=== PATIENT | male | born 1980 | race Caucasian/White ===

== ENCOUNTER 2017-11-03 19:16 | Emergency (ER) | payer BC, OTHER ==
[2017-11-03 19:31] VITALS: BP 150/100
[2017-11-03] MEDS ORDERED: Sodium Chloride 0.9% 10 ML Syringe FLUSH PRN (19:37)
[2017-11-03] MEDS ORDERED: Aspirin 81 MG Tab.Chew PO ONE (19:44)
--- NOTE | 2017-11-03 19:44 | EDM.PDOC ---
ED HPI GENERAL MEDICAL PROBLEM - General Chief Complaint: Chest Pain Stated Complaint: CHEST DISCOMFORT Time Seen by Provider: 11/03/17 19:31 Source of Information: Reports: Patient History Limitations: Reports: No Limitations - History of Present Illness INITIAL COMMENTS - FREE TEXT/NARRATIVE: The patient presents with fluttering in his chest. This has been going on since yesterday. It is on and off until tonight it was constant for the past 2 hours. It did stop by the time he came in. He has no chest pain or shortness of breath. He has no fever, chills, cough, abdominal pain, nausea or vomiting. He has no history of heart problems. He has no hypertension, diabetes or high cholesterol. He does not smoke. Onset: Gradual Duration: Day(s): (Yesterday) Location: Reports: Chest Quality: Reports: Other (fluttering) Severity: Moderate Improves with: Reports: None Worsens with: Reports: None Associated Symptoms: Reports: No Other Symptoms - Related Data Allergies Allergy/AdvReac Type Severity Reaction Status Date / Time No Known Allergies Allergy Verified 01/13/16 19:22 Home Meds: Home Meds Cholestyramine/Sucrose [Cholestyramine] 4 gm PO DAILY 01/13/16 [History] Hydrocodone/Acetaminophen [Hydrocodon-Acetaminophen 5-325] 5 - 325 mg PO ASDIRECTED 11/03/17 [History] Past Medical History - Past Health History Medical/Surgical History: Denies Medical/Surgical History Gastrointestinal History: Reports: Other (See Below) - Past Surgical History GI Surgical History: Reports: Cholecystectomy, Colonoscopy Social & Family History - Family History Family Medical History: Noncontributory - Tobacco Use Smoking Status *Q: Never Smoker Years of Tobacco use: 15 Packs/Tins Daily: 0.2 - Caffeine Use Caffeine Use: Reports: Soda - Recreational Drug Use Recreational Drug Use: No - Living Situation & Occupation Living situation: Reports: Occupation: Employed ED ROS GENERAL - Review of Systems Review Of Systems: See Below Constitutional: Reports: No Symptoms HEENT: Reports: No Symptoms Respiratory: Reports: No Symptoms Cardiovascular: Reports: Other (fluttering in his chest) Endocrine: Reports: No Symptoms GI/Abdominal: Reports: No Symptoms : Reports: No Symptoms Musculoskeletal: Reports: No Symptoms ED EXAM, GENERAL - Physical Exam Exam: See Below Exam Limited By: No Limitations General Appearance: Alert, No Apparent Distress Ears: Normal External Exam Nose: Normal Inspection Head: Atraumatic, Normocephalic Neck: Normal Inspection Respiratory/Chest: No Respiratory Distress, Lungs Clear, Normal Breath Sounds Cardiovascular: Regular Rate, Rhythm, No Edema, No Murmur GI/Abdominal: Soft, Non-Tender, No Organomegaly, No Mass Extremities: Normal Inspection EKG INTERPRETATION EKG Date: 11/03/17 Time: 19:26 Rhythm: NSR Rate (Beats/Min): 85 [place]: Normal P-Wave: Present QRS: Normal ST-T: Elevated (slight elevation in the inferior leads) QT: Normal EKG Interpretation Comments: Flipped T waves in the lateral leads Course - Vital Signs Last Recorded V/S: Last Vital Signs Temp 97.0 F 11/03/17 19:30 Pulse 87 11/03/17 19:30 Resp 20 11/03/17 19:30 BP 150/100 H 11/03/17 19:30 Pulse Ox 96 11/03/17 19:30 - Orders/Labs/Meds Orders: Active Orders 24 hr Category Date Time Status Cardiac Monitoring [RC] . DIRECTED Care 11/03/17 19:37 Active EKG Documentation Completion [RC] STAT Care 11/03/17 19:33 Active Peripheral IV Care [RC] . DIRECTED Care 11/03/17 19:38 Active Chest 1V Frontal [CR] Stat Exams 11/03/17 19:38 Taken Sodium Chloride 0.9% [Saline Flush] Med 11/03/17 19:37 Active 10 ml FLUSH ASDIRECTED PRN Peripheral IV Insertion Adult [OM.PC] Stat Oth 11/03/17 19:37 Ordered EKG 12 Lead [EK] Stat Ther 11/03/17 22:26 Ordered Medication Orders Sodium Chloride (Saline Flush) 10 ml FLUSH ASDIRECTED PRN PRN Reason: Keep Vein Open Last Admin: 11/03/17 19:57 Dose: 10 ml Labs: Laboratory Tests 11/03/17 11/03/17 11/03/17 Range/Units 19:45 19:45 19:45 WBC 7.52 (4.23-9.07) K/mm3 RBC 4.89 (4.63-6.08) M/mm3 Hgb 14.5 (13.7-17.5) gm/L Hct 40.7 (40.1-51.0) % MCV 83.2 (79.0-92.2) fl MCH 29.7 (25.7-32.2) pg MCHC 35.6 H (32.2-35.5) g/dl RDW Std Deviation 38.8 (35.1-43.9) fL Plt Count 177 (163-337) K/mm3 MPV 10.7 (9.4-12.3) fl Neut % (Auto) 61.0 (34.0-67.9) % Lymph % (Auto) 28.5 (21.8-53.1) % [place] % (Auto) 8.2 (5.3-12.2) % Eos % (Auto) 1.6 (0.8-7.0) Baso % (Auto) 0.3 (0.1-1.2) % Neut # (Auto) 4.59 (1.78-5.38) K/mm3 Lymph # (Auto) 2.14 (1.32-3.57) K/mm3 [place] # (Auto) 0.62 (0.30-0.82) K/mm3 Eos # (Auto) 0.12 (0.04-0.54) K/mm3 Baso # (Auto) 0.02 (0.01-0.08) K/mm3 D-Dimer, Quantitative 0.21 (0.19-0.50) mg/L Sodium 141 (136-145) mEq/L Potassium 3.6 (3.5-5.1) mEq/L Chloride 105 (98-107) mEq/L Carbon Dioxide 25 (21-32) mEq/L Anion Gap 14.6 (5-15) BUN 19 H (7-18) mg/dL Creatinine 1.2 (0.7-1.3) mg/dL Est Cr Clr Drug Dosing 88.02 mL/min Estimated GFR (MDRD) > 60 (>60) mL/min BUN/Creatinine Ratio 15.8 (14-18) Glucose 189 H (74-106) mg/dL Calcium 9.0 (8.5-10.1) mg/dL Total Bilirubin 0.3 (0.2-1.0) mg/dL AST 87 H (15-37) U/L ALT 162 H (16-63) U/L Alkaline Phosphatase 142 H (46-116) U/L Troponin I 0.019 (0.00-0.056) ng/mL Total Protein 7.2 (6.4-8.2) g/dl Albumin 3.7 (3.4-5.0) g/dl Globulin 3.5 gm/dL Albumin/Globulin Ratio 1.1 (1-2) 11/03/17 Range/Units 22:45 WBC (4.23-9.07) K/mm3 RBC (4.63-6.08) M/mm3 Hgb (13.7-17.5) gm/L Hct (40.1-51.0) % MCV (79.0-92.2) fl MCH (25.7-32.2) pg MCHC (32.2-35.5) g/dl RDW Std Deviation (35.1-43.9) fL Plt Count (163-337) K/mm3 MPV (9.4-12.3) fl Neut % (Auto) (34.0-67.9) % Lymph % (Auto) (21.8-53.1) % [place] % (Auto) (5.3-12.2) % Eos % (Auto) (0.8-7.0) Baso % (Auto) (0.1-1.2) % Neut # (Auto) (1.78-5.38) K/mm3 Lymph # (Auto) (1.32-3.57) K/mm3 [place] # (Auto) (0.30-0.82) K/mm3 Eos # (Auto) (0.04-0.54) K/mm3 Baso # (Auto) (0.01-0.08) K/mm3 D-Dimer, Quantitative (0.19-0.50) mg/L Sodium (136-145) mEq/L Potassium (3.5-5.1) mEq/L Chloride (98-107) mEq/L Carbon Dioxide (21-32) mEq/L Anion Gap (5-15) BUN (7-18) mg/dL Creatinine (0.7-1.3) mg/dL Est Cr Clr Drug Dosing mL/min Estimated GFR (MDRD) (>60) mL/min BUN/Creatinine Ratio (14-18) Glucose (74-106) mg/dL Calcium (8.5-10.1) mg/dL Total Bilirubin (0.2-1.0) mg/dL AST (15-37) U/L ALT (16-63) U/L Alkaline Phosphatase (46-116) U/L Troponin I 0.017 (0.00-0.056) ng/mL Total Protein (6.4-8.2) g/dl Albumin (3.4-5.0) g/dl Globulin gm/dL Albumin/Globulin Ratio (1-2) Meds: Medications Generic Name Dose Route Start Last Admin Trade Name Freq PRN Reason Stop Dose Admin Sodium Chloride 10 ml 11/03/17 19:37 11/03/17 19:57 Saline Flush FLUSH 10 ml ASDIRECTED PRN Administration Keep Vein Open Discontinued Medications Generic Name Dose Route Start Last Admin Trade Name Freq PRN Reason Stop Dose Admin Aspirin 324 mg 11/03/17 19:44 11/03/17 19:56 Aspirin PO 11/03/17 19:45 324 mg ONETIME ONE Administration - Re-Assessments/Exams Free Text/Narrative Re-Assessment/Exam: 11/03/17 19:44 I ordered an IV saline lock, aspirin, EKG, CXR and labs. His EKG is not normal. He has some flipped T waves in the lateral leads and slight elevation in the inferior leads. 11/03/17 23:29 His CXR looks good. His CBC looks good. His glucose was elevated at 187. His AST was elevated at 87. His ALT was elevated at 162 along with his alk phos. His troponin was normal. He had a couple PACS while here in the ER. I ordered a repeat EKG and he still had the flipped T waves in the lateral leads. I feel that is normal for him. I will have him wear a holter monitor for a couple of days and follow up with Dr Solomon. Departure - Departure Time of Disposition: 11:35 Disposition: Home, Self-Care 01 Condition: Good Clinical Impression: Palpitations, Elevated liver enzymes, Elevated blood sugar Referrals: PCP,None [Primary Care Provider] - Venkatesh Solomon Jr, MD [Ordering Only Provider] - 1 Week Forms: ED Department Discharge Additional Instructions: Wear the holter monitor for 2 days. Follow up with Dr Solomon in 1 week. Have your liver enzymes rechecked and your blood sugar. Please return if you are worse. - My Orders Last 24 Hours: My Active Orders 11/03/17 19:33 EKG Documentation Completion [RC] STAT 11/03/17 19:37 Cardiac Monitoring [RC] . DIRECTED Sodium Chloride 0.9% [Saline Flush] 10 ml FLUSH ASDIRECTED PRN Peripheral IV Insertion Adult [OM.PC] Stat 11/03/17 19:38 Peripheral IV Care [RC] . DIRECTED Chest 1V Frontal [CR] Stat 11/03/17 22:26 EKG 12 Lead [EK] Stat - Assessment/Plan Last 24 Hours: My Active Orders 11/03/17 19:33 EKG Documentation Completion [RC] STAT 11/03/17 19:37 Cardiac Monitoring [RC] . DIRECTED Sodium Chloride 0.9% [Saline Flush] 10 ml FLUSH ASDIRECTED PRN Peripheral IV Insertion Adult [OM.PC] Stat 11/03/17 19:38 Peripheral IV Care [RC] . DIRECTED Chest 1V Frontal [CR] Stat 11/03/17 22:26 EKG 12 Lead [EK] Stat
--- NOTE | 2017-11-04 07:10 | CR ---
Chest: Portable view of the chest was obtained. Comparison: Prior chest x-ray not available. Heart size and mediastinum are within normal limits for portable technique. Lungs are clear. Old healed left clavicle fracture is noted as well as several old healed rib fractures on the left side. Impression: 1. Nothing acute is seen on portable chest x-ray. Old left clavicle fracture is and old left-sided rib fractures. Diagnostic code #2
== END 2017-11-03 23:51 | disposition home or self-care (01) ==
LOC: JD.ED 19:16 → SUPCPDRO 19:16 → JD.ED 23:51
DX: R00.2 Palpitations (principal); R74.8 Abnormal levels of other serum enzymes; R73.9 Hyperglycemia, unspecified
CPT/HCPCS: 36415; 71045; 80053; 84484; 85025; 85379; 93005; 99285; A9270; J7050; 93010

== ENCOUNTER 2018-02-11 19:25 | Emergency (ER) | payer BC ==
[2018-02-11 19:35] VITALS: BP 154/101
[2018-02-11] MEDS ORDERED: Acetaminophen/HYDROcodone 325-5 MG Tab PO ONE (20:04)
--- NOTE | 2018-02-11 20:04 | EDM.PDOC ---
ED HPI GENERAL MEDICAL PROBLEM - General Chief Complaint: Skin Complaint Stated Complaint: SWOLLEN LEG Time Seen by Provider: 02/11/18 19:43 Source of Information: Reports: Patient, RN Notes Reviewed - History of Present Illness INITIAL COMMENTS - FREE TEXT/NARRATIVE: 37 year old male with swollen painful R lower leg. He started to have mild rash R lower leg about 1 week ago which has worsened over the last 2 days. Yesterday evening the leg started to swell. He did work today, this evening the leg is much more red, swollen and painful. No injury to the leg. He does work on work over rigs, wears a fire resistant coverall. Does get extremely hot and sweaty inside the coverall with the currently warm weather we are having. Right Lower Leg Pain Score (Numeric/FACES): 7 - Related Data Allergies Allergy/AdvReac Type Severity Reaction Status Date / Time No Known Allergies Allergy Verified 01/13/16 19:22 Home Meds: Home Meds Cholestyramine/Sucrose [Cholestyramine] 4 gm PO DAILY 01/13/16 [History] Hydrocodone/Acetaminophen [Hydrocodon-Acetaminophen 5-325] 5 - 325 mg PO ASDIRECTED 11/03/17 [History] Acetaminophen/HYDROcodone [[place] 325-5 MG] 1 tab PO Q6H PRN #10 tablet 02/11/18 [Rx] Cephalexin [Keflex] 500 mg PO QID #40 capsule 02/11/18 [Rx] Doxycycline [Vibramycin] 100 mg PO BID #20 tab 02/11/18 [Rx] Past Medical History - Past Health History Medical/Surgical History: Denies Medical/Surgical History Gastrointestinal History: Reports: Other (See Below) - Past Surgical History GI Surgical History: Reports: Cholecystectomy, Colonoscopy Social & Family History - Family History Family Medical History: Noncontributory - Tobacco Use Smoking Status *Q: Never Smoker - Caffeine Use Caffeine Use: Reports: None - Recreational Drug Use Recreational Drug Use: No - Living Situation & Occupation Living situation: Reports: Occupation: Employed ED ROS GENERAL - Review of Systems Review Of Systems: See Below Constitutional: Denies: Fever, Chills, Diaphoresis HEENT: Reports: No Symptoms Respiratory: Denies: Shortness of Breath, Pleuritic Chest Pain Cardiovascular: Denies: Chest Pain GI/Abdominal: Denies: Abdominal Pain, Nausea, Vomiting Musculoskeletal: Reports: Leg Pain (R lower leg) Skin: Reports: Rash (R lower leg), Erythema (R lower leg) Neurological: Denies: Numbness, Tingling ED EXAM, SKIN/RASH Exam: See Below General Appearance: Alert, Mild Distress Throat/Mouth: Normal Inspection Head: Atraumatic Neck: Supple Respiratory/Chest: No Respiratory Distress, Lungs Clear, Normal Breath Sounds Cardiovascular: Regular Rate, Rhythm Extremities: Pedal Edema, Leg Pain, Increased Warmth, Redness (R lower leg, scattered erythema and rash diffusely R lower leg), Other (quite severe diffuse tenderness R lower leg anteriorly and posteriorly) Neurological: No Motor/Sensory Deficits Skin: Warm, Dry, Erythema (R lower leg), Increased Warmth, Other Course - Vital Signs Last Recorded V/S: Last Vital Signs Temp 97.7 F 02/11/18 19:33 Pulse 76 02/11/18 19:33 Resp 16 02/11/18 19:33 BP 154/101 H 02/11/18 19:33 Pulse Ox 96 02/11/18 19:33 - Orders/Labs/Meds Orders: Active Orders 24 hr Category Date Time Status Peripheral IV Care [RC] . DIRECTED Care 02/11/18 20:49 Active Sodium Chloride 0.9% [Saline Flush] Med 02/11/18 20:49 Active 10 ml FLUSH ASDIRECTED PRN Peripheral IV Insertion Adult [OM.PC] Stat Oth 02/11/18 20:48 Ordered Medication Orders Sodium Chloride (Saline Flush) 10 ml FLUSH ASDIRECTED PRN PRN Reason: Keep Vein Open Last Admin: 02/11/18 20:56 Dose: 10 ml Labs: Laboratory Tests 02/11/18 Range/Units 20:00 D-Dimer, Quantitative 0.23 (0.19-0.50) mg/L Meds: Medications Generic Name Dose Route Start Last Admin Trade Name Freq PRN Reason Stop Dose Admin Sodium Chloride 10 ml 02/11/18 20:49 02/11/18 20:56 Saline Flush FLUSH 10 ml ASDIRECTED PRN Administration Keep Vein Open Discontinued Medications Generic Name Dose Route Start Last Admin Trade Name Freq PRN Reason Stop Dose Admin Hydrocodone Bitart/Acetaminophen 1 tab 02/11/18 20:04 02/11/18 20:09 [place] 325-5 Mg PO 02/11/18 20:05 1 tab ONETIME ONE Administration Cefazolin Sodium/Dextrose 2 gm 50 mls @ 100 mls/hr 02/11/18 20:49 02/11/18 20 :56 / Premix IV 02/11/18 21:18 100 mls/hr ONETIME ONE Administration - Re-Assessments/Exams Free Text/Narrative Re-Assessment/Exam: 02/11/18 21:34 D Dimer was neg. Have given ancef 2 grams IV, discharge instr. as documented. Departure - Departure Time of Disposition: 21:30 Disposition: Home, Self-Care 01 Condition: Fair Clinical Impression: Cellulitis Qualifiers: Site of cellulitis: extremity Site of cellulitis of extremity: lower extremity Laterality: right Qualified Code(s): L03.115 - Cellulitis of right lower limb - Discharge Information Prescriptions: Acetaminophen/HYDROcodone [[place] 325-5 MG] 1 tab PO Q6H PRN #10 tablet PRN Reason: Pain Cephalexin [Keflex] 500 mg PO QID #40 capsule Doxycycline [Vibramycin] 100 mg PO BID #20 tab Instructions: Cellulitis, Adult, [id number] Referrals: Venkatesh Solomon Jr, MD [Primary Care Provider] - Forms: ED Department Discharge Additional Instructions: rest and elevate leg as much as possible to help get the swelling down, doxycycline 200 mg twice daily for 4 days and than 100 mg twice daily for the next 6 days. Cephalexin 500 mg 4 times daily for 10 days or until gone. Tylenol or ibuprofen for mild to moderate discomfort or hydrocodone if needed for more severe pain. Do not drive or work when taking hydrocodone. Have rechecked if symptoms become much worse over the next 12 to 24 hours rather than improving over the next 2 to 3 days as expected. - My Orders Last 24 Hours: My Active Orders 02/11/18 20:48 Peripheral IV Insertion Adult [OM.PC] Stat 02/11/18 20:49 Peripheral IV Care [RC] . DIRECTED Sodium Chloride 0.9% [Saline Flush] 10 ml FLUSH ASDIRECTED PRN - Assessment/Plan Last 24 Hours: My Active Orders 02/11/18 20:48 Peripheral IV Insertion Adult [OM.PC] Stat 02/11/18 20:49 Peripheral IV Care [RC] . DIRECTED Sodium Chloride 0.9% [Saline Flush] 10 ml FLUSH ASDIRECTED PRN
[2018-02-11] MEDS ORDERED: ceFAZolin 2 GM in Premix Bag 1 BAG IV ONE (20:49)
[2018-02-11] MEDS ORDERED: Sodium Chloride 0.9% 10 ML Syringe FLUSH PRN (20:49)
== END 2018-02-11 21:35 | disposition home or self-care (01) ==
LOC: JD.ED 19:25
DX: L03.115 Cellulitis of right lower limb (principal); Z79.899 Other long term (current) drug therapy
CPT/HCPCS: 36415; 85379; 96365; 99283; A9270; J0690; J7050

== ENCOUNTER 2018-02-15 12:40 | Emergency (ER) | payer BC ==
[2018-02-15] MEDS ORDERED: Acetaminophen/HYDROcodone 325-5 MG Tab PO ONE (13:07)
--- NOTE | 2018-02-15 13:12 | EDM.PDOC ---
ED HPI GENERAL MEDICAL PROBLEM - General Chief Complaint: Lower Extremity Injury/Pain Stated Complaint: R LEG SWOLLEN Time Seen by Provider: 02/15/18 12:51 Source of Information: Reports: Patient, RN Notes Reviewed (37-year-old male comes in with right leg pain and swelling. Presented to the ED 4 days ago with similar symptoms. At that time d-dimer was negative, diagnosis was made of cellulitis. He was started on doxycycline and cephalexin. He states the leg was improving with the swelling going down less erythema but then after going back to work this morning about 7 hours ago the leg is now become much more swollen and painful.) - History of Present Illness INITIAL COMMENTS - FREE TEXT/NARRATIVE: 37-year-old male comes in with right lower leg pain and swelling. He was first seen in our ED 4 days ago. See that record for details. D-dimer was negative. He was diagnosed with cellulitis, started on cephalexin and doxycycline. The swelling did improve over the following 3 days and erythema and rash was also improving. After going back to work this morning about 7 hours ago the leg is now much more swollen red and painful. He has had no recent fever or chills but states he did have fever about 5 days ago, one day before he presented to the ED. He is not aware of any particular injury. No chest pain or difficulty breathing. Right Lower Leg Pain Score (Numeric/FACES): 6 - Related Data Allergies Allergy/AdvReac Type Severity Reaction Status Date / Time No Known Allergies Allergy Verified 02/15/18 12:57 Home Meds: Home Meds Cholestyramine/Sucrose [Cholestyramine] 4 gm PO DAILY 01/13/16 [History] Hydrocodone/Acetaminophen [Hydrocodon-Acetaminophen 5-325] 5 - 325 mg PO ASDIRECTED 11/03/17 [History] Cephalexin [Keflex] 500 mg PO QID #40 capsule 02/11/18 [Rx] Doxycycline [Vibramycin] 100 mg PO BID #20 tab 02/11/18 [Rx] Acetaminophen/HYDROcodone [[place] 325-5 MG] 1 tab PO Q6H PRN #14 tablet 02/15/18 [Rx] Past Medical History - Past Health History Medical/Surgical History: Denies Medical/Surgical History Gastrointestinal History: Reports: Other (See Below) - Past Surgical History GI Surgical History: Reports: Cholecystectomy, Colonoscopy Social & Family History - Family History Family Medical History: Noncontributory - Caffeine Use Caffeine Use: Reports: None - Living Situation & Occupation Living situation: Reports: Occupation: Employed Review of Systems - Review of Systems Review Of Systems: See Below Constitutional: Reports: Fever. Denies: Chills Eyes: Reports: No Symptoms (5 days ago) Mouth/Throat: Reports: No Symptoms Respiratory: Denies: Shortness of Breath, Pleuritic Chest Pain, Cough Cardiovascular: Denies: Chest Pain, Palpitations GI/Abdominal: Denies: Abdominal Pain, Nausea, Vomiting Musculoskeletal: Reports: Leg Pain (Right lower leg). Denies: Joint Pain Skin: Reports: Rash (Right lower leg), Erythema Neurological: Denies: Numbness ( right lower leg), Tingling ED EXAM, GENERAL - Physical Exam Exam: See Below General Appearance: Alert, Mild Distress Eye Exam: Bilateral Eye: PERRL Throat/Mouth: Normal Inspection Head: Atraumatic Neck: Supple Respiratory/Chest: No Respiratory Distress, Lungs Clear, Normal Breath Sounds Cardiovascular: Regular Rate, Rhythm Extremities: Pedal Edema (Moderate diffuse swelling right lower leg), Leg Pain ( Quite markedly tenderness of the right lower leg especially posteriorly), Increased Warmth (Mild right lower leg), Redness (Mild right lower leg) Neurological: Alert, Oriented, No Motor/Sensory Deficits Skin Exam: Warm, Dry Course - Vital Signs Last Recorded V/S: Last Vital Signs Temp 97.1 F 02/15/18 13:01 Pulse 74 02/15/18 13:01 Resp 18 02/15/18 13:01 BP 164/96 H 02/15/18 13:01 Pulse Ox 97 02/15/18 13:01 - Orders/Labs/Meds Labs: Laboratory Tests 02/15/18 02/15/18 Range/Units 13:24 13:24 WBC 6.93 (4.23-9.07) K/mm3 RBC 4.67 (4.63-6.08) M/mm3 Hgb 14.1 (13.7-17.5) gm/L Hct 39.5 L (40.1-51.0) % MCV 84.6 (79.0-92.2) fl MCH 30.2 (25.7-32.2) pg MCHC 35.7 H (32.2-35.5) g/dl RDW Std Deviation 39.6 (35.1-43.9) fL Plt Count 174 (163-337) K/mm3 MPV 10.7 (9.4-12.3) fl Neutrophils % (Manual) 66 H (40-60) % Band Neutrophils % 0 (0-10) % Lymphocytes % (Manual) 27 (20-40) % Atypical Lymphs % 0 % Monocytes % (Manual) 6 (2-10) % Eosinophils % (Manual) 1 (0.8-7.0) % Basophils % (Manual) 0 L (0.2-1.2) Platelet Estimate Adequate RBC Morph Comment Normal C-Reactive Protein 0.4 (<1.0) mg/dL Meds: Medications Discontinued Medications Generic Name Dose Route Start Last Admin Trade Name Freq PRN Reason Stop Dose Admin Hydrocodone Bitart/Acetaminophen 1 tab 02/15/18 13:07 02/15/18 13:15 [place] 325-5 Mg PO 02/15/18 13:08 1 tab ONETIME ONE Administration - Re-Assessments/Exams Free Text/Narrative Re-Assessment/Exam: 02/15/18 15:41 White blood count normal at around 6500, see protein 0.4. Ultrasound of right lower leg negative for DVT, edema present as expected. He is on cephalexin and doxycycline. He is on his feet a lot at work working 12-15 or more hour days. In terms of getting better that is not going to work for him to be on his feet like that. Work note provided for the remainder of this week. Discharge instructions as documented. Departure - Departure Time of Disposition: 15:43 Disposition: Home, Self-Care 01 Condition: Fair Clinical Impression: Cellulitis Qualifiers: Site of cellulitis: extremity Site of cellulitis of extremity: lower extremity Laterality: right Qualified Code(s): L03.115 - Cellulitis of right lower limb - Discharge Information Prescriptions: Acetaminophen/HYDROcodone [[place] 325-5 MG] 1 tab PO Q6H PRN #14 tablet PRN Reason: Pain Instructions: Cellulitis, Adult Referrals: Venkatesh Solomon Jr, MD [Primary Care Provider] - Forms: ED Department Discharge, ED Return to Work/School Form Additional Instructions: Rest and elevate leg as much as possible as discussed, calf muscle by moving her foot back and forth as discussed to help increase fluid and venous return. Continue Tylenol or ibuprofen for mild to moderate discomfort or hydrocodone if needed for more severe pain. Try see one of the providers at the clinic in 3-4 days for recheck. Return to ED as needed if symptoms worsening in any way.
[2018-02-15 13:21] VITALS: BP 164/96
--- NOTE | 2018-02-15 15:28 | US ---
Right lower extremity deep venous ultrasound: Duplex and color flow imaging was obtained of the right common femoral and proximal greater saphenous, superficial femoral, popliteal, posterior tibial and peroneal veins. Left common femoral vein was also evaluated. Findings: Normal phasic flow, augmentation and compression are seen. Subcutaneous edema is seen within the right calf. Impression: 1. Soft tissue edema within the right calf. 2. No evidence of deep venous thrombosis is seen within the right lower extremity or within the left common femoral vein Diagnostic code #2
== END 2018-02-15 16:12 | disposition home or self-care (01) ==
LOC: JD.ED 12:40
DX: L03.115 Cellulitis of right lower limb (principal)
CPT/HCPCS: 36415; 85007; 85027; 86140; 93971; 99284; A9270